=== PATIENT | female | born 1940 | race Caucasian/White ===

== ENCOUNTER 2017-07-03 16:05 | Emergency (ER) | payer OTHER ==
--- NOTE | 2017-07-03 16:11 | PDOC ---
History of Present Illness - General Chief Complaint: Pain Stated Complaint: BILATERAL LEG DVT Time Seen by Provider: 07/03/17 16:11 History Source: Patient - History of Present Illness Initial Comments: 07/03/17 16:12 Patient is a 77 year old female with history of DVT sent by PCP after duples showed Findings consistent with bilateral deep venous thromboses involving the right popliteal vein and left common femoral vein. PCP Dr. Rider Past History - Past Medical History Allergies/Adverse Reactions: Allergies Allergy/AdvReac Type Severity Reaction Status Date / Time No Known Drug Allergies Allergy Verified 04/21/16 08:17 Home Medications: Ambulatory Orders Aspirin [Ecotrin] 81 mg PO DAILY 04/15/16 Atenolol [Tenormin -] 50 mg PO DAILY 04/15/16 Atorvastatin Ca [Lipitor] 20 mg PO HS 04/15/16 Cholecalciferol (Vitamin D3) [Vitamin D3] 50,000 unit PO WEEKLY 04/15/16 Clopidogrel Bisulfate [Clopidogrel] 75 mg PO DAILY 04/15/16 Hydrochlorothiazide 25 mg PO DAILY 04/15/16 Rivaroxaban [Xarelto -] 15 mg PO BID #41 tab 07/03/17 Anemia: No Asthma: No Cancer: No Cardiac Disorders: Yes (PT HAD CHEST PAIN 2001,WORKUP---HAD 2 STENTS PLACED, LAST STESS TEST 2007,[place]) CVA: No COPD: No CHF: No Dementia: No Diabetes: No GI Disorders: Yes (H/O C/O STOMACH PAIN AFTER EATING;H/O COLON POLYPS) Disorders: No HTN: Yes Hypercholesterolemia: Yes Liver Disease: No Seizures: No Thyroid Disease: No - Surgical History Abdominal Surgery: No Appendectomy: Yes (1969) Cardiac Surgery: Yes (STENTS X2 2001) Cholecystectomy: No Lung Surgery: No Neurologic Surgery: No Orthopedic Surgery: Yes - Psycho/Social/Smoking Cessation Hx Smoking History: Never smoked Have you smoked in the past 12 months: No Hx Alcohol Use: Yes (RARE) Drug/Substance Use Hx: No Substance Use Type: Alcohol Hx Substance Use Treatment: No ED Treatment Course - LABORATORY CBC & Chemistry Diagram: 07/03/17 18:10 07/03/17 18:10 Medical Decision Making - Medical Decision Making 07/03/17 16:12 77 year old female with history of DVTs sent to ED by her PCP with duplex evidence of bilateral proximal DVTs. Patient states she was seen by her PCP for annual check-up who performed duplex d/t patinent c/o leg claudication on exzersion and was found to have b'l DVTs in the poplateal and femeral. Patient denies leg pain and shortness of breath. Denies any history of cerebral hemorrhage, current bleeding, recent surgery, recent long trips. 07/03/17 17:56 07/03/17 19:08 CMP Sodium 137 mmol/L (136-145) 07/03/17 18:10 Potassium 3.8 mmol/L (3.5-5.1) 07/03/17 18:10 Chloride 100 mmol/L (98-107) 07/03/17 18:10 Carbon Dioxide 29 mmol/L (22-28) H 07/03/17 18:10 Anion Gap 8 (8-16) 07/03/17 18:10 BUN 19 mg/dl (7-18) H 07/03/17 18:10 Creatinine 0.8 mg/dl (0.6-1.3) 07/03/17 18:10 Creat Clearance w eGFR > 60 (>60) 07/03/17 18:10 Random Glucose 98 mg/dl (74-106) 07/03/17 18:10 Calcium 9.4 mg/dl (8.4-10.2) 07/03/17 18:10 Total Bilirubin 0.4 mg/dl (0.2-1.0) 07/03/17 18:10 AST 27 U/L (10-42) 07/03/17 18:10 ALT 20 U/L (10-40) 07/03/17 18:10 Alkaline Phosphatase 60 U/L (32-92) 07/03/17 18:10 Total Protein 7.3 g/dl (6.4-8.3) 07/03/17 18:10 Albumin 4.3 g/dl (3.5-5.0) 07/03/17 18:10 Renal function wnl, CR 0.8, started on initial dose of enoxaparin, 70 mg (1 mg/ kg bid) 07/03/17 19:04 Microblog sent to hospitalist Patient care signed out to Dr. Kimberly Castillo *DC/Admit/Observation/Transfer Diagnosis at time of Disposition: DVT, bilateral lower limbs - Discharge Dispostion Condition at time of disposition: Stable - Prescriptions
[2017-07-03 16:28] VITALS: BMI 29.0
[2017-07-03 18:24] LABS: BASOPHIL 0.6 % (0-2.0); EOSINOPHIL 3.9 % (0-4.5); MCHC 32.7 g/dl (32.0-36.0); MEAN CELL VOLUME 91.9 fl (80-96); NEUTROPHILS 50.9 % (42.8-82.8); PLATELET COUNT 276 K/MM3 (134-434); RDW 13.7 % (11.6-15.6)
[2017-07-03 18:32] LABS: ACTIVATED PTT 26.7 SECONDS (24.0-38.9)
[2017-07-03 18:33] LABS: ALBUMIN 4.3 g/dl (3.5-5.0); ALK PHOS 60 U/L (32-92); ANION GAP 8 (8-16); BILIRUBIN,TOTAL 0.4 mg/dl (0.2-1.0); CALCIUM 9.4 mg/dl (8.4-10.2); CO2 29 mmol/L (22-28); CREATININE 0.8 mg/dl (0.6-1.3); GLUCOSE,RANDOM 98 mg/dl (74-106); SGOT/AST 27 U/L (10-42); SGPT/ALT 20 U/L (10-40); TOT PROT 7.3 g/dl (6.4-8.3)
[2017-07-03 18:36] LABS: INR 0.94 (0.82-1.09); PROTHROMBIN TIME (PATIENT) 10.5 SEC (10.2-13.0)
[2017-07-03] MEDS ORDERED: ENOXAPARIN NA (PORCINE) 120 MG/0.8 ML DISP.SYRIN SQ ONE (19:16)
--- NOTE | 2017-07-03 19:31 | PDOC ---
*Physical Exam - Vital Signs Last Vital Signs Temp Pulse Resp BP Pulse Ox 98.4 F 72 15 169/95 97 07/03/17 16:07 07/03/17 16:07 07/03/17 16:07 07/03/17 16:07 07/03/17 16:07 ED Treatment Course - LABORATORY CBC & Chemistry Diagram: 07/03/17 18:10 07/03/17 18:10 - ADDITIONAL ORDERS Additional order review: Laboratory Results 07/03/17 07/03/17 18:10 18:10 INR 0.94 L PTT (Actin FS) 26.7 Sodium 137 Potassium 3.8 Chloride 100 Carbon Dioxide 29 H Anion Gap 8 BUN 19 H Creatinine 0.8 Creat Clearance w eGFR > 60 Random Glucose 98 Calcium 9.4 Total Bilirubin 0.4 AST 27 ALT 20 Alkaline Phosphatase 60 Total Protein 7.3 Albumin 4.3 07/03/17 18:10 RBC 5.07 MCV 91.9 MCHC 32.7 RDW 13.7 MPV 8.0 Neutrophils % 50.9 Lymphocytes % 34.9 Monocytes % 9.7 Eosinophils % 3.9 Basophils % 0.6 Progress Note - Progress Note Progress Note: Case discussed with Dr. Vilchis ,[facility] hospitalist service who will admit patient for anticoagulation bilateral DVTs *DC/Admit/Observation/Transfer Diagnosis at time of Disposition: DVT, bilateral lower limbs Qualifiers: Affected thrombotic vein of extremity: unspecified vein of extremity Chronicity : acute Qualified Code(s): I82.403 - Acute embolism and thrombosis of unspecified deep veins of lower extremity, bilateral - Discharge Dispostion Disposition: HOME Condition at time of disposition: Stable Admit: Yes - Prescriptions
[2017-07-03] MEDS ORDERED: ENOXAPARIN NA (PORCINE) 100 MG/1 ML DISP.SYRIN SQ ONE (21:16)
[2017-07-03] MEDS ORDERED: RIVAROXABAN 15 MG TABLET PO ONE (21:32)
--- NOTE | 2017-07-03 21:37 | HP ---
CHIEF COMPLAINT: "I have blood clots in my legs." PCP: Adry HISTORY OF PRESENT ILLNESS: This is a 77yo woman with PMH of HTN, HLD and DVT who presents today from her PMD's office with (+) duplex doppler for DVT in left common femoral vein and right popliteal vein. She reports she has been experiencing intermittent b/l leg pain while walking up hills since approximately November of this year. She was taking warfarin for previous DVTs until "some time in 2016." She denies chest pain, shortness of breath, fevers or palpitations. ER course was notable for: (1) Review of previous duplex doppler Recent Travel: denies PAST MEDICAL HISTORY: see HPI PAST SURGICAL HISTORY: see HPI Social History: Smoking: denies Alcohol: denies Drugs: denies Allergies No Known Drug Allergies Allergy (Verified 04/21/16 08:17) HOME MEDICATIONS: Home Medications Medication Instructions Recorded Aspirin [Ecotrin] 81 mg PO DAILY 04/15/16 Atenolol [Tenormin -] 50 mg PO DAILY 04/15/16 Atorvastatin Ca [Lipitor] 20 mg PO HS 04/15/16 Cholecalciferol (Vitamin D3) 50,000 unit PO WEEKLY 04/15/16 [Vitamin D3] Clopidogrel Bisulfate [Clopidogrel] 75 mg PO DAILY 04/15/16 Hydrochlorothiazide 25 mg PO DAILY 04/15/16 REVIEW OF SYSTEMS CONSTITUTIONAL: Absent: fever, chills, diaphoresis, generalized weakness, malaise, loss of appetite, weight change HEENT: Absent: rhinorrhea, nasal congestion, throat pain, throat swelling, difficulty swallowing, mouth swelling, ear pain, eye pain, visual changes CARDIOVASCULAR: Absent: chest pain, syncope, palpitations, irregular heart rate, lightheadedness , peripheral edema RESPIRATORY: Absent: cough, shortness of breath, dyspnea with exertion, orthopnea, wheezing, stridor, hemoptysis GASTROINTESTINAL: Absent: abdominal pain, abdominal distension, nausea, vomiting, diarrhea, constipation, melena, hematochezia GENITOURINARY: Absent: dysuria, frequency, urgency, hesitancy, hematuria, flank pain, genital pain MUSCULOSKELETAL: Present: bilateral leg pain while walking up hills Absent: myalgia, arthralgia, joint swelling, back pain, neck pain SKIN: Absent: rash, itching, pallor HEMATOLOGIC/IMMUNOLOGIC: Absent: easy bleeding, easy bruising, lymphadenopathy, frequent infections ENDOCRINE: Absent: unexplained weight gain, unexplained weight loss, heat intolerance, cold intolerance NEUROLOGIC: Absent: headache, focal weakness or paresthesias, dizziness, unsteady gait, seizure, mental status changes, bladder or bowel incontinence PSYCHIATRIC: Absent: anxiety, depression, suicidal or homicidal ideation, hallucinations. PHYSICAL EXAMINATION GENERAL: Awake, alert, and fully oriented, in no acute distress. HEAD: Normal with no signs of trauma. EYES: Pupils equal, round and reactive to light, extraocular movements intact, sclera anicteric, conjunctiva clear. No lid lag. EARS, NOSE, THROAT: Ears normal, nares patent, oropharynx clear without exudates. Moist mucous membranes. NECK: Normal range of motion, supple without lymphadenopathy, JVD, or masses. LUNGS: Breath sounds equal, clear to auscultation bilaterally. No wheezes, and no crackles. No accessory muscle use. HEART: Regular rate and rhythm, normal S1 and S2 without murmur, rub or gallop. ABDOMEN: Soft, nontender, not distended, normoactive bowel sounds, no guarding, no rebound, no masses. No hepatomegaly or splenomegaly. MUSCULOSKELETAL: Normal range of motion at all joints. No bony deformities or tenderness. No CVA tenderness. UPPER EXTREMITIES: 2+ pulses, warm, well-perfused. No cyanosis. No clubbing. No peripheral edema. LOWER EXTREMITIES: 2+ pulses, warm, well-perfused. No calf tenderness. Trace peripheral edema. NEUROLOGICAL: Cranial nerves II-XII intact. Normal speech. Normal gait. PSYCHIATRIC: Cooperative. Good eye contact. Appropriate mood and affect. SKIN: Warm, dry, normal turgor, no rashes or lesions noted, normal capillary refill. ASSESSMENT/PLAN: A: 77 woman with PMH HTN and hyperlipidemia with DVTs in left common femoral and right popliteal veins. P: DVT - Lovenox given in ER - Will discharge with Rx for Xarelto and 1 dose to start in AM HTN - continue home meds HLD - continue home meds Visit type - Emergency Visit Emergency Visit: Yes ED Registration Date: 07/03/17 Care time: The patient presented to the Emergency Department on the above date and was hospitalized for further evaluation of their emergent condition. - New Patient This patient is new to me today: Yes Date on this admission: 07/04/17 - Critical Care Critical Care patient: No
--- NOTE | 2017-07-03 21:53 | DS ---
Physical Exam: SUBJECTIVE: Patient seen and examined OBJECTIVE: PHYSICAL EXAM GENERAL: The patient is awake, alert, and fully oriented, in no acute distress. HEAD: Normal with no signs of trauma. EYES: PERRL, extraocular movements intact, sclera anicteric, conjunctiva clear. ENT: Ears normal, nares patent, oropharynx clear without exudates, moist mucous membranes. NECK: Trachea midline, full range of motion, supple. LUNGS: Breath sounds equal, clear to auscultation bilaterally, no wheezes, no crackles, no accessory muscle use. HEART: Regular rate and rhythm, S1, S2 without murmur, rub or gallop. ABDOMEN: Soft, nontender, nondistended, normoactive bowel sounds, no guarding, no rebound, no hepatosplenomegaly, no masses. EXTREMITIES: 2+ pulses, warm, well-perfused, no edema. NEUROLOGICAL: Cranial nerves II through XII grossly intact. Normal speech, gait not observed. PSYCH: Normal mood, normal affect. SKIN: Warm, dry, normal turgor, no rashes or lesions noted. LABS HOSPITAL COURSE: Date of Admission:07/03/17 Date of Discharge: 07/03/17 Discharge Summary Reason For Visit: DVT Current Active Problems DVT, bilateral lower limbs (Acute) Condition: Stable - Instructions Diet, Activity, Other Instructions: Take Xarelto twice every day with food for 21 days. Then take Xarelto 20mg daily with food until stopped by your doctor. There are no diet restrictions with this medication. Continue you other medications as prescribed. Return to the ER for chest pain, shortness of breath, palpitations, or any other concerns. Referrals: Anna Rider MD [Primary Care Provider] - Disposition: HOME - Home Medications Comprehensive Discharge Medication List: Ambulatory Orders Aspirin [Ecotrin] 81 mg PO DAILY 04/15/16 Atenolol [Tenormin -] 50 mg PO DAILY 04/15/16 Atorvastatin Ca [Lipitor] 20 mg PO HS 04/15/16 Cholecalciferol (Vitamin D3) [Vitamin D3] 50,000 unit PO WEEKLY 04/15/16 Hydrochlorothiazide 25 mg PO DAILY 04/15/16 Rivaroxaban [Xarelto] 15mg PO BID for 21 days
[2017-07-03 22:11] VITALS: BP 162/84; PULSE 65; TEMP 98.1
--- NOTE | 2017-07-05 21:59 | EKG ---
Test Reason : Blood Pressure : / mmHG Vent. Rate : 059 BPM Atrial Rate : 059 BPM P-R Int : 154 ms QRS Dur : 084 ms QT Int : 478 ms P-R-T Axes : 049 -19 001 degrees QTc Int : 473 ms SINUS BRADYCARDIA WITH OCCASIONAL PREMATURE VENTRICULAR COMPLEXES NONSPECIFIC T WAVE ABNORMALITY NO PREVIOUS ECGS AVAILABLE Confirmed by CATRACHITA GONG MD ([id number]) on 07/05/2017 9:58:55 PM Referred By: MD MARTINEZ Confirmed By:CATRACHITA GONG MD
== END 2017-07-03 22:11 | disposition home or self-care (01) ==
LOC: FER 16:05 → FM/S 21:15 → UNDOADMOB 21:15 → FM/S 21:29 → UNDODISOB 07-04 15:23
PROC: 3E023GC Introduction of Other Therapeutic Substance into Muscle, Percutaneous Approach (ICD-10-PCS; principal; 2017-07-03)
DX: I82.403 Acute embolism and thrombosis of unspecified deep veins of lower extremity, bilateral (principal); Z86.718 Personal history of other venous thrombosis and embolism; E78.00 Pure hypercholesterolemia, unspecified; I10 Essential (primary) hypertension; Z95.5 Presence of coronary angioplasty implant and graft; Z79.01 Long term (current) use of anticoagulants
CPT/HCPCS: 36415; 71010-TC; 80053; 85025; 85610; 85730; 93005; 99282-25

== ENCOUNTER 2018-07-29 06:11 | Day surgery (SDC) | payer OTHER ==
[2018-06-07 12:48] VITALS: BMI 28.3
[~2018-07-29 06:11] MED LIST: BUPIVACAINE HCL/PF 0.5% (5MG/ML) 10 ML VIAL IJ ONE
[2018-07-29] MEDS ORDERED: LIDOCAINE HCL/PF 2% SDV 5ML VIAL ONE (07:24)
[2018-07-29] MEDS ORDERED: SODIUM CHLORIDE 0.9% P/F 10 ML VIAL IJ ONE (07:24)
[2018-07-29] MEDS ORDERED: DEXAMETHASONE SOD PHOSPHATE 4 MG/1 ML VIAL ONE (07:24)
[2018-07-29] MEDS ORDERED: ceFAZolin SODIUM 1 GM VIAL ONE ×3 (07:24→22:35)
[2018-07-29] MEDS ORDERED: MIDAZOLAM HCL 2 MG/2 ML SINGLE DOSE VIAL ONE ×3 (07:25→07:27)
[2018-07-29] MEDS ORDERED: SUCCINYLCHOLINE CHLORIDE 200 MG/10 ML VIAL ONE (07:25)
[2018-07-29] MEDS ORDERED: ROCURONIUM BROMIDE 50 MG/5 ML VIAL ONE (07:25)
[2018-07-29] MEDS ORDERED: PROPOFOL 20 ML ONE (07:25)
[2018-07-29] MEDS ORDERED: BUPIVACAINE HCL/PF 0.25% (2.5MG/ML) 10 ML VIAL ONE ×2 (07:29→07:30)
[2018-07-29] MEDS ORDERED: DEXAMETHASONE SOD PHOSPHATE/PF 10 MG/ML SDV ONE (07:29)
[2018-07-29] MEDS ORDERED: PHENAZOPYRIDINE HCL 100 MG TABLET (FP) ONE ×2 (07:40→13:35)
[2018-07-29] MEDS ORDERED: CEFAZOLIN 2 GM in DEXTROSE 5%-WATER - 100 ML IVPB ONE ×2 (08:06→10:59)
--- NOTE | 2018-07-29 08:06 | HP ---
History & Physical Update - History History: No Change - Physical Physical: No Change - Assessment Assessment: No Change - Plan Plan: No Change (Full H&P in chart from 06/29/2018)
[2018-07-29] MEDS ORDERED: ePHEDrine SULFATE 50 MG/1 ML AMPULE ONE (08:20)
[2018-07-29] MEDS ORDERED: ceFAZolin SODIUM 1 GM VIAL IVPB ONE (08:20)
[2018-07-29] MEDS ORDERED: ONDANSETRON 4 MG/2 ML VIAL IVPUSH PRN ×2 (08:39→11:57)
[2018-07-29] MEDS ORDERED: LACTATED RINGERS SOLUTION 1,000 ML IV SCH (08:45)
[2018-07-29] MEDS ORDERED: GLYCOPYRROLATE 0.2 MG/1 ML VIAL ONE (08:47)
[2018-07-29] MEDS ORDERED: NEOSTIGMINE METHYLSULFATE 0.5 MG/ML - 10 ML MDV ONE (08:48)
[2018-07-29] MEDS ORDERED: BUPIVACAINE HCL/PF 0.5% (5MG/ML) 10 ML VIAL IJ ONE (09:59)
--- NOTE | 2018-07-29 10:23 | CONSULT ---
Consult Consult Specialty:: Surgery Reason for Consultation:: Colon diverticular disease seen in the OR during hysterectomy - History of Present Illness History of Present Illness: As above - Past Medical History ...: No - Alcohol/Substance Use Hx Alcohol Use: Yes (RARE) - Smoking History Smoking history: Never smoked Have you smoked in the past 12 months: No Home Medications - Allergies Allergies/Adverse Reactions: Allergies Allergy/AdvReac Type Severity Reaction Status Date / Time No Known Drug Allergies Allergy Verified 06/07/18 12:23 - Home Medications Home Medications: Ambulatory Orders Aspirin [Ecotrin] 81 mg PO DAILY 04/15/16 Atenolol [Tenormin -] 50 mg PO DAILY 04/15/16 Atorvastatin Ca [Lipitor] 20 mg PO HS 04/15/16 Cholecalciferol (Vitamin D3) [Vitamin D3] 50,000 unit PO WEEKLY 04/15/16 Clopidogrel Bisulfate [Clopidogrel] 75 mg PO DAILY 04/15/16 Hydrochlorothiazide 25 mg PO DAILY 04/15/16 B12/Levomefolate Calcium/B-6 [Folbic Rf Tablet] 2,000 each PO DAILY 06/07/18 Levothyroxine [Synthroid -] 50 mcg PO DAILY 06/07/18 Oxybutynin Chloride [Ditropan Xl] 10 mg PO DAILY 06/07/18 Review of Systems Unable to obtain ROS, reason: Intubated Physical Exam Vital Signs: Vital Signs Temperature 98.3 F 07/29/18 06:35 Pulse Rate 58 L 07/29/18 06:35 Respiratory Rate 20 07/29/18 06:35 Blood Pressure 146/83 07/29/18 06:35 O2 Sat by Pulse Oximetry (%) 95 07/29/18 06:35 Problem List - Problems (1) Diverticula of colon Code(s): K57.30 - DVRTCLOS OF LG INT W/O PERFORATION OR ABSCESS W/O BLEEDING Assessment/Plan Diverticula seen in left colon/sigmoid during hysterectomy Recommend colonoscopy as outpatient Colorectal surgery evaluation Thank you
--- NOTE | 2018-07-29 10:41 | OP ---
DATE OF OPERATION: 07/28/2018 PREOPERATIVE DIAGNOSIS: Pelvic prolapse, leiomyomatous uterus. OPERATION: Laparoscopic robotic total hysterectomy and bilateral salpingo-oophorectomy enterolysis o POSTOPERATIVE DIAGNOSIS: Diverticulosis. SURGEON: Samaria Zamora MD IMPACT HAMMER OPERATOR: AMBROSE Bolton ANESTHESIA: General. DESCRIPTION OF PROCEDURE: The patient was taken to the operating room and placed in dorsal lithotomy position, prepped and draped in the usual sterile fashion. A time-out was performed in accordance with hospital regulation. The cervix was grasped with a single-tooth tenaculum, and cervix was found to be prolapse out of vagina. The cervix was grasped with a tenaculum. The cervix was then dilated to accommodate the uterine manipulator. Whiteside catheter was then inserted. Attention was then drawn to the umbilicus where an 8-mm umbilical incision was made. Veress needle was inserted into the cavity. Approximately 3-4 L of CO2 was insufflated in the cavity. Veress needle was then removed. An 8-mm trocar was then inserted. Two trocars were placed on the left 8 mm apart from the umbilical incision. An 8-mm trocar was then inserted, and AirSeal cannula was inserted in the upper abdomen under direct visualization. Two incisions were made on the right side 8 mm apart parallel to the umbilical incision. Trocars were then inserted under direct visualization. The Da Lexi robot was then side docked to the patient's arm. Trocars were then inserted onto the Da Lexi robot. The tenaculum and Endo Lyssa were inserted on the right, and vessel sealer was inserted on the left. After placement had been confirmed, attention was then drawn to the console where control of the console was done. Omental adhesions were found and lysis with vessal sealer. Tenaculum was used to elevate the uterus. Leiomyomatous uterus was noted, and diverticulum of the colon was seen. Uterine ovarian ligament was identified, clamped, and cut on the right. Ovaries were noted to be normal. Tubes normal. The adnexa was then coagulated and cut. Vesicouterine reflection was then entered, and the bladder was bluntly dissected out of the operative field. Ureters were identified prior to start of the case and found to have peristalsis. Uterines were grasped with vessel sealer and clamped and cut down to the level of the cervix after bladder had been bluntly dissected off the cervix. The same procedure was repeated on the other side down to the level of the cervix. The vagina was then entered posteriorly, and circumferentially the cervix was then removed. The cervix, uterus, tubes, and ovaries were removed from the vagina. A 2-0 V-Lock suture was then used into the abdomen, and the vagina was then closed using Da Lexi robot in a continuous fashion. Hemostasis was achieved. Ureters were identified and found to have the peristalsis. Intraoperative consult was called with Surgery Dr Lucio and found the patient just to have diverticula. Need to follow up with GI doctor. Hemostasis was achieved. Needle was then removed. All trocars were then removed from the abdomen. CO2 was removed. Incisions were closed using 3-0 Vicryl suture in a subcuticular fashion. The wound was washed and dressed. EBL was about 50 mL. SAMARIA ZAMORA M.D. [id number]
[2018-07-29] MEDS ORDERED: PHENAZOPYRIDINE HCL 100 MG TABLET (FP) PO ONE (10:59)
[2018-07-29] MEDS ORDERED: oxyCODONE HCL 5 MG TABLET PO PRN ×2 (11:23)
[2018-07-29] MEDS ORDERED: ACETAMINOPHEN 325 MG TABLET (FP) PO SCH (11:30)
[2018-07-29] MEDS ORDERED: LACTATED RINGERS SOLUTION 1,000 ML/1,000 ML INFUS.BAG IV SCH (11:30)
--- NOTE | 2018-07-29 11:31 | OP ---
Operative Note - Note: Operative Date: 07/29/18 Pre-Operative Diagnosis: prolapsed uterus Operation: s/p robotic assisted total hysterctomy with bilateral salpingectomy and oophorectomy, lysis of adhesions Surgeon: Ursula Uribe Insurance Claim Auditor: Patty Alvarez Anesthesia: General Specimens Removed: uterus, bilateral salpingx and ovaries Estimated Blood Loss (mls): 50 Drains, Volume Out (mls): 300 (carbajal) Fluid Volume Replaced (mls): 900 Operative Report Dictated: Yes
--- NOTE | 2018-07-29 11:33 | SURG ---
Surgery Spray Drier Note Spray Drier: Patty Alvarez PA-C Date of Service: 07/29/18 Diagnosis: prolasped uterus Procedure: robotic assisted total hysterectomy with bilateral salpingectomy and oophorectomy, lysis of adhesions I was present for the entirety of the operative procedure. For further detail, please refer to operative report. Visit type - Case Type Case Type: Scheduled - Emergency Emergency Visit: No - New patient This patient is new to me today: Yes Date on this admission: 07/29/18
[2018-07-29] MEDS ORDERED: SOLIFENACIN SUCCINATE 5 MG TAB (FP) PO SCH (12:00)
[2018-07-29] MEDS: ACETAMINOPHEN 325 MG TABLET (FP) PO SCH ×2 (15:08→22:52)
[2018-07-29] MEDS ORDERED: DEXTROSE 5%-WATER - 50 ML IVPB ONE ×2 (15:24→22:35)
[2018-07-29] MEDS: CEFAZOLIN 1 GM in DEXTROSE 5%-WATER - 50 ML IVPB SCH ×2 (15:28→22:50)
[2018-07-29] MEDS ORDERED: CEFAZOLIN 1 GM in DEXTROSE 5%-WATER - 50 ML IVPB SCH (16:00)
[2018-07-29 20:47] LABS: BASO % 0.1 % (0-2.0); HEMATOCRIT 41.2 % (32.4-45.2); LYMPH % 8.7 % (8-40); MCH 31.2 pg (25.7-33.7); MEAN CELL VOLUME 91.8 fl (80-96); MEAN PLT VOLUME 8.4 fl (7.5-11.1); MONO % 2.5 % (3.8-10.2); NEUT % 88.7 % (42.8-82.8); PLATELET COUNT 211 K/MM3 (134-434); RBC 4.49 M/mm3 (3.60-5.2); RDW 14.1 % (11.6-15.6); WHITE BLOOD COUNT 7.8 K/mm3 (4.0-10.0)
[2018-07-29 21:36] LABS: ANION GAP 10 MMOL/L (8-16); BLOOD UREA NITROGEN 14 mg/dL (7-18); CALCIUM 8.8 mg/dL (8.5-10.1); CHLORIDE 104 mmol/L (98-107); CO2 25 mmol/L (21-32); CREATININE 0.9 mg/dL (0.55-1.3); GLUCOSE,RANDOM 191 mg/dL (74-106); SODIUM 139 mmol/L (136-145)
[2018-07-29] MEDS ORDERED: ATORVASTATIN CA 20 MG TABLET (FP) PO SCH (22:00)
[2018-07-30] MEDS: ACETAMINOPHEN 325 MG TABLET (FP) PO SCH (06:30)
[2018-07-30] MEDS ORDERED: LEVOTHYROXINE NA 50 MCG TABLET (FP) PO SCH (07:00)
[2018-07-30 08:04] LABS: HEMATOCRIT 41.5 % (32.4-45.2); HEMOGLOBIN 13.7 GM/dL (10.7-15.3); MCH 30.5 pg (25.7-33.7); MEAN CELL VOLUME 92.3 fl (80-96); MEAN PLT VOLUME 7.9 fl (7.5-11.1); PLATELET COUNT 221 K/MM3 (134-434); RDW 14.1 % (11.6-15.6)
[2018-07-30 08:07] VITALS: BP 105/60; PULSE 69; TEMP 98.2
[2018-07-30 08:26] LABS: ANION GAP 4 MMOL/L (8-16); BLOOD UREA NITROGEN 12 mg/dL (7-18); CALCIUM 8.7 mg/dL (8.5-10.1); CHLORIDE 105 mmol/L (98-107); CO2 30 mmol/L (21-32); CREATININE 0.7 mg/dL (0.55-1.3); GLUCOSE,RANDOM 105 mg/dL (74-106); POTASSIUM 4.6 mmol/L (3.5-5.1); SODIUM 139 mmol/L (136-145)
[2018-07-30] MEDS ORDERED: ATENOLOL 50 MG TABLET (FP) PO SCH (10:00)
[2018-07-30] MEDS ORDERED: HYDROCHLOROTHIAZIDE 25 MG TABLET (FP) PO SCH (10:00)
[2018-07-30] MEDS ORDERED: ENOXAPARIN NA (PORCINE) 30 MG/0.3 ML DISP.SYRIN SQ SCH (10:00)
--- NOTE | 2018-07-30 11:34 | PN ---
Progress Note (short form) - Note Progress Note: Pt seen and examined on AM rounds. Patient sitting in chair. Reports she is feeling well, denies any pain at this time. Tolerating PO, has been oob without issue. Awaiting TOV, carbajal removed this AM. Denies cp/sob, n/v/d, calf pain. Vital Signs Temp 98.2 F 07/30/18 08:06 Pulse 69 07/30/18 08:06 Resp 20 07/30/18 08:06 BP 105/60 07/30/18 08:06 Pulse Ox 97 07/29/18 14:20 Intake & Output 07/29/18 07/29/18 07/30/18 11:59 23:59 11:59 Intake Total 1000 800 700 Output Total 350 1050 1200 Balance 650 -250 -500 Intake: IV 1000 500 700 LACTATED RINGERS SOLUTION 400 700 1,000 ml In 1,000 ml @ 75 mls/hr IV ASDIR WILBERTO Rx #:[id number] IVPB 300 Output: Urine 300 1050 1200 Carbajal 750 1200 Estimated Blood Loss 50 Other: Voiding Method Indwelling Catheter Abnormal Lab Results 07/29/18 07/29/18 07/30/18 20:20 20:20 07:30 WBC 13.0 H Neutrophils % 88.7 H D Monocytes % 2.5 L Anion Gap Random Glucose 191 H 07/30/18 07:30 WBC Neutrophils % Monocytes % Anion Gap 4 L Random Glucose CBC, BMP 07/30/18 07:30 07/30/18 07:30 Gen: awake, alert, nad Abdomen, soft, nt/nd, incisions c/d/i with steri-strips/bandages in place Ext: calves soft/nt A/P: 78 y/o F w/ PMHx DVT (R pop, L cfv; 06/25), venous insufficiency, bladder prolapse, now POD1, s/p robotic assisted total hysterctomy with bilateral salpingectomy and oophorectomy, lysis of adhesions. Doing well post op. VSS, labs stable, OOb without issue, tolerating PO. P: TOV for 6am Continue pain control Plan for d/c later today
--- NOTE | 2018-08-02 17:14 | PATH ---
Surgical Pathology Report Patient Name: SHLOMO YOST [facility]. Rec. #: [id number] /Age/Gender: 1940 (Age: 78) / F Account: [id number] Location: AMBULATORY SURG Taken: 07/29/2018 Received: 07/29/2018 Reported: 08/02/2018 Physicians: Ursula Uribe M.D. Specimen(s) Received UTERUS, CERVIX, WITH TUBES AND OVARIES Clinical History Uterine prolapse Final Diagnosis UTERUS, CERVIX, BILATERAL OVARIES AND FALLOPIAN TUBES, HYSTERECTOMY AND BILATERAL SALPINGO-OOPHORECTOMY: LEIOMYOMATA, SOME OF THE LEIOMYOMAS SHOWING DEGENERATIVE CHANGE (HYALINIZATION, CALCIFICATION). ATROPHIC ENDOMETRIUM. CERVIX WITH MILD CHRONIC INFLAMMATION. LEFT FALLOPIAN TUBE WITH PARATUBAL CYSTS. UNREMARKABLE BILATERAL OVARIES AND RIGHT FALLOPIAN TUBE. Electronically Signed Sunil Coppola M.D. Gross Description Received in formalin labeled "uterus, cervix, bilateral ovaries and fallopian tubes," is a 61 g uterus with an attached cervix and attached bilateral fallopian tubes and ovaries. The specimen measures 8 cm from superior to inferior, 4.7 cm from anterior to posterior and 4 cm from left to right. The serosa is lo-lundy with a bulging anterior, calcified subserosal nodule. The attached cervix measures 4 cm in length and 2 cm in diameter. There is no ectocervix identified. The endocervix is unremarkable. The endometrial cavity measures 3 cm from superior to inferior and 2 cm from cornu to cornu. The endometrium averages 0.1 cm in thickness. There is a 1.3 cm in greatest dimension bulging anterior, calcified submucosal nodule. The myometrium displays multiple intramural nodules, measuring up to 2 cm in greatest dimension. The cut surface of the intramural nodules is lo and rubbery with whorled architecture. The left fimbriated fallopian tube measures 4 cm in length. The outer surface is lo lundy and smooth. Sectioning reveals an unremarkable lumen. The left ovary measures 2.6 x 1.5 x 1.0 cm. The outer surface is lo-yellow and smooth. Sectioning reveals unremarkable ovarian parenchyma. The right fimbriated fallopian tube measures 4.3 cm in length. The outer surface is lo lundy and smooth. Sectioning reveals an unremarkable lumen. The right ovary measures 2.5 x 1.4 x 0.9 cm. The outer surface is lo-yellow and smooth. Sectioning reveals an unremarkable lumen. Buckle Assembler sections are submitted in 15 cassettes as follows: 1-anterior cervix; 2-posterior cervix; 7-1-cbycxoon endomyometrium; 9-5-fvmxcnyak endomyometrium; 7-calcified submucosal nodule, following decalcification; 8-calcified subserosal nodule, following decalcification; 9-intramural nodules; 10-left fallopian tube fimbria; 11-cross sections of left fallopian tube; 12-left ovary; 13-right fallopian tube fimbria; 14-cross sections of right fallopian tube; 15-right ovary. 07/30/2018 [facility]07/30/2018
== END 2018-07-30 13:05 | disposition home or self-care (01) ==
LOC: JASU-SURG 06:11 → JASUSAT 06:11 → J3W 14:25 → JASUSAT 07-30 13:05
PROVIDERS: ATTEND Obstetrics & Gynecology
PROC: 0UT7FZZ Resection of Bilateral Fallopian Tubes, Via Natural or Artificial Opening With Percutaneous Endoscopic Assistance (ICD-10-PCS; 2018-07-29)
PROC: 8E0W8CZ Robotic Assisted Procedure of Trunk Region, Via Natural or Artificial Opening Endoscopic (ICD-10-PCS; 2018-07-29)
PROC: 0UT9FZZ Resection of Uterus, Via Natural or Artificial Opening With Percutaneous Endoscopic Assistance (ICD-10-PCS; principal; 2018-07-29 08:00)
PROC: 0UT2FZZ Resection of Bilateral Ovaries, Via Natural or Artificial Opening With Percutaneous Endoscopic Assistance (ICD-10-PCS; 2018-07-29 08:00)
DX: N81.89 Other female genital prolapse (principal); D25.9 Leiomyoma of uterus, unspecified
CPT/HCPCS: 58552; S2900; 36415; 80048; 85025; 85027; 88307-TC; 94760

== ENCOUNTER 2019-03-08 01:12 | Inpatient (IN) | payer OTHER ==
--- NOTE | 2019-03-08 02:17 | PDOC ---
History of Present Illness - General Stated Complaint: ABD PAIN Time Seen by Provider: 03/08/19 02:08 - History of Present Illness Initial Comments: 03/08/19 02:54 The patient is a 79 year old female with a history of HTN, HLD, CAD, who presents for evaluation of abdominal pain. The patient reports onset of sharp upper abdominal pain beginning yesterday evening that has progressively worsened prompting her presentation to the ED for further evaluation. She denies similar symptoms in the past and otherwise denies fevers, chills, SOB, chest pain, nausea, vomiting, or changes with urination or bowel movements. Past History - Past Medical History Allergies/Adverse Reactions: Allergies Allergy/AdvReac Type Severity Reaction Status Date / Time No Known Drug Allergies Allergy Verified 03/08/19 02:30 Home Medications: Ambulatory Orders Aspirin [Ecotrin] 81 mg PO DAILY 04/15/16 Atenolol [Tenormin -] 50 mg PO DAILY 04/15/16 Atorvastatin Ca [Lipitor] 20 mg PO HS 04/15/16 Hydrochlorothiazide 25 mg PO DAILY 04/15/16 Levothyroxine [Synthroid -] 50 mcg PO DAILY 06/07/18 Oxybutynin Chloride [Ditropan Xl] 10 mg PO DAILY 06/07/18 Anemia: No Asthma: No Cancer: No Cardiac Disorders: Yes (PT HAD CHEST PAIN 2001,WORKUP---HAD 2 STENTS PLACED, LAST STESS TEST 2007,[place]) CVA: No COPD: No CHF: No Dementia: No Diabetes: No GI Disorders: No Disorders: Yes (incontinence) HTN: Yes Hypercholesterolemia: Yes Liver Disease: No Seizures: No Thyroid Disease: Yes - Surgical History Abdominal Surgery: No Appendectomy: Yes (1969) Cardiac Surgery: Yes (STENTS X2 2001) Cholecystectomy: No Lung Surgery: No Neurologic Surgery: No Orthopedic Surgery: Yes - Suicide/Smoking/Psychosocial Hx Smoking History: Never smoked Have you smoked in the past 12 months: No Hx Alcohol Use: Yes (RARE) Drug/Substance Use Hx: No Substance Use Type: Alcohol Hx Substance Use Treatment: No Review of Systems - Review of Systems Comments:: 03/08/19 02:56 Constitutional: No fevers, chills, fatigue, malaise HEENT: No Rhinorrhea, nasal congestion, visual changes Cardiovascular: No chest pain, syncope, palpitations, lightheadedness Respiratory: No Cough, SOB, Hemoptysis, Gastrointestinal: Abdominal pain, No Nausea, Vomiting, Constipation, Diarrhea, Melena Genitourinary: No Dysuria, Frequency, Urgency, Hesitancy, Hematuria, Flank pain Musculoskeletal: No Myalgia, arthralgia Skin: No rashes, itching, bruising, pallor Neurologic: No Headache, Dizziness, Numbness, Weakness, or Tingling Psychiatric: No Hallucinations. No SI or HI *Physical Exam - Physical Exam Comments: 03/08/19 02:56 General Appearance: Nourished. No Apparent Distress HEENT: No Pharyngeal Erythema, Tonsillar Exudate, Tonsillar Erythema Neck: No Cervical Lymphadenopathy Respiratory/Chest: Lungs Clear, Normal Breath Sounds. No Crackles, Rales, Rhonchi, Wheezing Cardiovascular: Regular Rhythm, Regular Rate. No Murmur, Gallops, Rubs Gastrointestinal/Abdominal: Normal Bowel Sounds, Soft. Diffuse upper abdominal tenderness to palpation on exam in the LUQ, epigastrium and RUQ. No Guarding, Rebound, Musculoskeletal: No CVA Tenderness Extremity: Normal Capillary Refill Integumentary: Normal Color, Dry, Warm Neurologic: Fully Oriented, Alert, Normal Mood/Affect, Normal Response, ED Treatment Course - LABORATORY CBC & Chemistry Diagram: 03/08/19 02:53 03/08/19 02:53 Medical Decision Making - Medical Decision Making 03/08/19 02:57 The patient is a 79 year old female with a history of HTN, HLD, CAD, who presents for evaluation of abdominal pain. Differential includes but is not limited to: ACS, Gastritis, Gastroenteritis, Pancreatitis, Infectious, Metabolic Derangement. Given the patient's history and physical exam, we will obtain a cbc, cmp, lipase, troponin, lactate, ekg, chest plain film, abdomen/ pelvis ct to evaluate further. We will treat with iv fluids, pepcid, zofran, tylenol and continue to monitor and reassess while here in the ED. 03/08/19 04:45 CBC is unremarkable. CMP demonstrates mild elevations in liver enzymes. Lipase is elevated to 19618g. Lactate is elevated to 2.4. Chest plain film is unremarkable. CT abdomen/pelvis is still pending. The patient's symptoms are likely due to an acute pancreatitis. We will treat with iv fluids and the patient will require admission for further management. We discussed the case with the admitting team who accepted the patient for admission. 03/08/19 06:01 CT abdomen/pelvis demonstrates possible gallbladder wall thickening with pericholcystic fluid concerning for a possible cholecytitis as preliminarily read by our information technology audit manager radiologist. We will treat with levaquin and flagyl and we have relayed the results of the ct to the inpatient team. We will obtain a gallbladder US to evaluate further which the inpatient team will follow up on the results for. *DC/Admit/Observation/Transfer Diagnosis at time of Disposition: Pancreatitis Qualifiers: Chronicity: acute Pancreatitis type: unspecified pancreatitis type Acute pancreatitis complication: unspecified Qualified Code(s): K85.90 - Acute pancreatitis without necrosis or infection, unspecified - Discharge Dispostion Condition at time of disposition: Stable Decision to Admit order: Yes - Referrals - Patient Instructions - Post Discharge Activity
[2019-03-08] MEDS ORDERED: ONDANSETRON 4 MG/2 ML VIAL IVPUSH ONE (02:25)
[2019-03-08] MEDS ORDERED: ACETAMINOPHEN 1000 MG/100 ML VIAL (NON FORMULARY) IVPB ONE (02:27)
[2019-03-08] MEDS ORDERED: SODIUM CHLORIDE 1,000 ML IV STA ×2 (02:27→03:56)
--- NOTE | 2019-03-08 02:31 | PDOC ---
Attending Attestation - Resident Resident Name: Db Barker - ED Attending Attestation I have performed the following: I have examined & evaluated the patient, The case was reviewed & discussed with the resident, I agree w/resident's findings & plan - HPI HPI: 03/08/19 03:58 79-year-old female with mid abdominal pain that began approximately 8 PM last night. Patient describes it as aching. It did not radiate to the back. Vomiting or fever. - Physicial Exam PE: 03/08/19 03:58 GENERAL: Awake, in no acute distress HEAD: No signs of trauma EYES: ENT:clear without exudates. Moist mucosa NECK: Normal ROM, LUNGS:. Normal work of breathing. HEART: Regular rate and rhythm, ABDOMEN: Soft, mild. Umbilical/midepigastric tenderness, no guarding CHEST WALL: BACK: No midline tenderness. EXTREMITIES:. No erythema, or tenderness NEUROLOGICAL: Alert, SKIN: Warm, Dry - Medical Decision Making 03/08/19 03:59 79-year-old female with abdominal pain now improved after IV fluids anti- emetics antacids and analgesics Labs reveal a significantly elevated lipase consistent with acute pancreatitis Plan for CT scan of the abdomen and pelvis and admission to medical service for further management
[2019-03-08] MEDS ORDERED: ONDANSETRON 4 MG/2 ML VIAL ONE (02:59)
[2019-03-08 03:14] LABS: BASO % 0.2 % (0-2.0); EOS % 0.7 % (0-4.5); HEMOGLOBIN 14.9 GM/dL (10.7-15.3); LYMPH % 11.4 % (8-40); MCH 31.7 pg (25.7-33.7); MCHC 33.9 g/dl (32.0-36.0); MEAN CELL VOLUME 93.7 fl (80-96); MEAN PLT VOLUME 8.1 fl (7.5-11.1); MONO % 4.8 % (3.8-10.2); NEUT % 82.9 % (42.8-82.8); PLATELET COUNT 212 K/MM3 (134-434); RDW 13.8 % (11.6-15.6); WHITE BLOOD COUNT 8.9 K/mm3 (4.0-10.0)
[2019-03-08] MEDS ORDERED: ACETAMINOPHEN INJECTION 100 ML IVPB ONE (03:15)
[2019-03-08] MEDS ORDERED: FAMOTIDINE 20 MG/50 ML IVPB 20 MG/50 ML MG IVPB ONE ×2 (03:47→04:00)
[2019-03-08 03:52] LABS: ALBUMIN 3.6 g/dl (3.4-5.0); ALK PHOS 106 U/L (45-117); ANION GAP 7 MMOL/L (8-16); BILIRUBIN,TOTAL 0.8 mg/dL (0.2-1); BLOOD UREA NITROGEN 10 mg/dL (7-18); CALCIUM 9.2 mg/dL (8.5-10.1); CHLORIDE 100 mmol/L (98-107); CO2 27 mmol/L (21-32); CREATININE 0.7 mg/dL (0.55-1.3); GLUCOSE,RANDOM 163 mg/dL (74-106); LIPASE 29288 U/L (73-393); POTASSIUM 4.5 mmol/L (3.5-5.1); SGOT/AST 215 U/L (15-37); SGPT/ALT 157 U/L (13-61); SODIUM 134 mmol/L (136-145); TOT PROT 7.2 g/dl (6.4-8.2)
[2019-03-08] MEDS ORDERED: ACETAMINOPHEN 325 MG TABLET (FP) PO PRN (04:13)
[2019-03-08] MEDS ORDERED: morphine SULFATE 4 MG/ML VIAL IVPUSH PRN (04:13)
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
[2019-03-08] MEDS: LACTATED RINGERS SOLUTION 1,000 ML IV SCH (05:32)
[2019-03-08] MEDS ORDERED: LEVOTHYROXINE NA 25 MCG TABLET (FP) ONE (07:12)
[2019-03-08] MEDS: LEVOTHYROXINE NA 50 MCG TABLET (FP) PO SCH (07:21)
[2019-03-08 08:00] LABS: ANION GAP 4 MMOL/L (8-16); BLOOD UREA NITROGEN 8 mg/dL (7-18); CHLORIDE 106 mmol/L (98-107); CO2 30 mmol/L (21-32); CREATININE 0.8 mg/dL (0.55-1.3); GLUCOSE,RANDOM 123 mg/dL (74-106); MAGNESIUM 2.1 mg/dL (1.8-2.4); PHOSPHOROUS 3.6 mg/dL (2.5-4.9); POTASSIUM 4.1 mmol/L (3.5-5.1); SODIUM 141 mmol/L (136-145)
[2019-03-08 08:09] LABS: BASO % 0.5 % (0-2.0); EOS % 0.6 % (0-4.5); HEMOGLOBIN 15.3 GM/dL (10.7-15.3); LYMPH % 15.7 % (8-40); MCHC 33.3 g/dl (32.0-36.0); MEAN CELL VOLUME 93.1 fl (80-96); NEUT % 79.2 % (42.8-82.8); PLATELET COUNT 251 K/MM3 (134-434); RBC 4.94 M/mm3 (3.60-5.2); RDW 14.1 % (11.6-15.6)
[2019-03-08 08:21] LABS: INR 0.96 (0.83-1.09); PROTHROMBIN TIME (PATIENT) 11.3 SEC (9.7-13.0)
--- NOTE | 2019-03-08 08:34 | EKG ---
Test Reason : Blood Pressure : / mmHG Vent. Rate : 063 BPM Atrial Rate : 063 BPM P-R Int : 140 ms QRS Dur : 076 ms QT Int : 470 ms P-R-T Axes : 036 -19 -11 degrees QTc Int : 480 ms POOR DATA QUALITY, INTERPRETATION MAY BE ADVERSELY AFFECTED NORMAL SINUS RHYTHM NONSPECIFIC ST AND T WAVE ABNORMALITY ABNORMAL ECG WHEN COMPARED WITH ECG OF 23-JUL-2018 09:58, QT HAS LENGTHENED Confirmed by MD JERRI, JC ([id number]) on 03/08/2019 8:34:20 AM Referred By: Confirmed By:JC GUTHRIE MD
[2019-03-08] MEDS: ATENOLOL 50 MG TABLET (FP) PO SCH (09:35)
[2019-03-08] MEDS: SOLIFENACIN SUCCINATE 5 MG TAB (FP) PO SCH (09:35)
[2019-03-08] MEDS: ENOXAPARIN NA (PORCINE) 40 MG/0.4 ML DISP.SYRIN SQ SCH (09:35)
--- NOTE | 2019-03-08 09:56 | CON.GI ---
Consult - History of Present Illness History of Present Illness: GI consult dictated abx ivf @ 150 cc/ hr npo mrcp surgery evaluation see full consult - Alcohol/Substance Use Hx Alcohol Use: Yes (RARE) - Smoking History Smoking history: Never smoked Have you smoked in the past 12 months: No Home Medications - Allergies Allergies/Adverse Reactions: Allergies Allergy/AdvReac Type Severity Reaction Status Date / Time No Known Drug Allergies Allergy Verified 03/08/19 02:30 - Home Medications Home Medications: Ambulatory Orders Aspirin [Ecotrin] 81 mg PO DAILY 04/15/16 Atenolol [Tenormin -] 50 mg PO DAILY 04/15/16 Atorvastatin Ca [Lipitor] 20 mg PO HS 04/15/16 Hydrochlorothiazide 25 mg PO DAILY 04/15/16 Levothyroxine [Synthroid -] 50 mcg PO DAILY 06/07/18 Oxybutynin Chloride [Ditropan Xl] 10 mg PO DAILY 06/07/18 Physical Exam-GI Vital Signs: Vital Signs Temperature 98.2 F 03/08/19 06:57 Pulse Rate 62 03/08/19 06:57 Respiratory Rate 18 03/08/19 01:12 Blood Pressure 132/61 03/08/19 06:57 O2 Sat by Pulse Oximetry (%) 96 03/08/19 06:57 Labs: CBC, BMP 03/08/19 07:25 03/08/19 07:25 INR, PTT INR 0.96 (0.83-1.09) 03/08/19 07:25
[2019-03-08] MEDS ORDERED: HYDROCHLOROTHIAZIDE 25 MG TABLET (FP) PO SCH (10:00)
[2019-03-08] MEDS ORDERED: ASPIRIN COATED 81 MG TABLET.EC PO SCH (10:00)
[2019-03-08] MEDS ORDERED: morphine SULFATE 4 MG/ML VIAL ONE (10:57)
[2019-03-08] MEDS ORDERED: LACTATED RINGERS SOLUTION 1,000 ML/1,000 ML INFUS.BAG IV SCH (11:00)
--- NOTE | 2019-03-08 12:03 | PN ---
Teaching Attending Note Name of Resident: Jus Nguyen ATTENDING PHYSICIAN STATEMENT I saw and evaluated the patient. I reviewed the resident's note and discussed the case with the resident. I agree with the resident's findings and plan as documented. SUBJECTIVE:continues to have RUQ/LUQ abdominal pain but improved since arrival. no similiar episodes in the past. did not start in one area and then radiates. never had biliary colic-like symptoms or been treated for pancreatitis in the past. states she only drinks 1-2/year for special occasions and last drink was some time ago. denies Cp, SOB, fever, chills, N/V OBJECTIVE: Last Vital Signs Temp Pulse Resp BP Pulse Ox 98.2 F 62 18 132/61 96 03/08/19 06:57 03/08/19 06:57 03/08/19 01:12 03/08/19 06:57 03/08/19 06:57 General NAD CV S1 S2 RRR no murmur/rub/gallop Lungs CTA b/l No wheezing/rales/rhonchi Abdomen +RUQ/LUQ/epigastric tenderness worse in RUQ. +pelayo sign Extremiteis no pedal edema ASSESSMENT AND PLAN: 79yo F wtih PMH provoked DVT and completed anticoagualtion, HTN, dyslipidemia, CAD and hypothyroid presenting to the ER with abdominal pain and found to have acute pancreatitis from suspected gallstones 1. ACute pancreatitis- suspects gallstones from initial imaging. will obtain MRCP. NPO, LR, pain and antiemetics. if from gallbladder will need it out on this admission. Surgery and Gi consulted. received Flagyl/levaquin in the ER. pt is afebrile and no leukocytosis. will hold abx at this time as not indicated as no signs of acute cholecystitis on ultrasound 2. GB wall polyp- 6mm. will need evaluation of this from when cholecystectomy is performed 3. Acute transaminitis- possible from medications although not severe enough to warrnat stopping medication. no repeats were done. nothing visualized in the liver on CT scan. check hepatitis panel. trend 4. HTN- currently normotensive. will hold diuretics 5. Hypothyroid- cont LT4 6. dyslipidemia- hold statin at htis time to trend LFT but should resume on discharge as they are not severe enough where risk outweight benefits of statin therapy 7. DVT ppx- lovenox
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
[2019-03-08 14:08] LABS: CHOLESTEROL 152 mg/dL (50-200); HDL CHOLESTEROL 60 mg/dL (40-60); TRIGLYCERIDES 120 mg/dL (0-150)
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
[2019-03-08] MEDS ORDERED: PIPERACILLIN/TAZOB 3.375 GM 3.375 GM/50 ML BAG IVPB ONE (15:02)
[2019-03-08] MEDS: PIPERACILLIN/TAZOB 3.375 GM 3.375 GM in DEXTROSE 5%-WATER - 50 ML IVPB SCH ×2 (15:06→18:06)
[2019-03-08 19:32] LABS: ALBUMIN 3.1 g/dl (3.4-5.0); ALK PHOS 80 U/L (45-117); ANION GAP 6 MMOL/L (8-16); BILIRUBIN,TOTAL 0.8 mg/dL (0.2-1); BLOOD UREA NITROGEN 7 mg/dL (7-18); CALCIUM 8.8 mg/dL (8.5-10.1); CHLORIDE 107 mmol/L (98-107); CO2 30 mmol/L (21-32); CREATININE 0.7 mg/dL (0.55-1.3); GLUCOSE,RANDOM 92 mg/dL (74-106); LIPASE 1925 U/L (73-393); POTASSIUM 3.9 mmol/L (3.5-5.1); SGOT/AST 65 U/L (15-37); SGPT/ALT 105 U/L (13-61); SODIUM 143 mmol/L (136-145); TOT PROT 5.7 g/dl (6.4-8.2)
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
[2019-03-08] MEDS ORDERED: ATORVASTATIN CA 20 MG TABLET (FP) PO SCH (22:00)
[2019-03-08 22:09] VITALS: BMI 28.5
[2019-03-09] MEDS ORDERED: DEXTROSE 5%-WATER - 50 ML IVPB ONE ×2 (01:30→08:46)
[2019-03-09] MEDS ORDERED: PIPERACILLIN/TAZOBACTAM 3.375 GM VIAL IVPB ONE ×2 (01:30→08:46)
[2019-03-09] MEDS: PIPERACILLIN/TAZOB 3.375 GM 3.375 GM in DEXTROSE 5%-WATER - 50 ML IVPB SCH ×2 (03:15→09:18)
[2019-03-09] MEDS ORDERED: PT OWN MED DRAWER 7, Y5N ONE (05:51)
[2019-03-09] MEDS: LACTATED RINGERS SOLUTION 1,000 ML IV SCH ×3 (06:25→18:43)
[2019-03-09] MEDS: LEVOTHYROXINE NA 50 MCG TABLET (FP) PO SCH (06:26)
[2019-03-09 07:58] LABS: HEMATOCRIT 43.3 % (32.4-45.2); HEMOGLOBIN 14.8 GM/dL (10.7-15.3); MCH 31.9 pg (25.7-33.7); MCHC 34.2 g/dl (32.0-36.0); MEAN CELL VOLUME 93.1 fl (80-96); MEAN PLT VOLUME 8.1 fl (7.5-11.1); PLATELET COUNT 229 K/MM3 (134-434); RBC 4.65 M/mm3 (3.60-5.2); RDW 14.2 % (11.6-15.6); WHITE BLOOD COUNT 5.6 K/mm3 (4.0-10.0)
[2019-03-09 08:15] LABS: ALBUMIN 3.4 g/dl (3.4-5.0); ALK PHOS 84 U/L (45-117); ANION GAP 6 MMOL/L (8-16); BLOOD UREA NITROGEN 7 mg/dL (7-18); CALCIUM 9.3 mg/dL (8.5-10.1); CHLORIDE 105 mmol/L (98-107); CO2 29 mmol/L (21-32); CREATININE 0.9 mg/dL (0.55-1.3); GLUCOSE,RANDOM 87 mg/dL (74-106); POTASSIUM 4.2 mmol/L (3.5-5.1); SGOT/AST 52 U/L (15-37); SGPT/ALT 95 U/L (13-61); SODIUM 141 mmol/L (136-145); TOT PROT 6.5 g/dl (6.4-8.2)
[2019-03-09] MEDS: ATENOLOL 50 MG TABLET (FP) PO SCH (09:18)
[2019-03-09] MEDS: ENOXAPARIN NA (PORCINE) 40 MG/0.4 ML DISP.SYRIN SQ SCH (09:18)
[2019-03-09] MEDS: SOLIFENACIN SUCCINATE 5 MG TAB (FP) PO SCH (09:18)
--- NOTE | 2019-03-09 12:41 | PN ---
Progress Note, Physician History of Present Illness: patient doing well minimal abd pain no complaints surgery on board - Current Medication List Current Medications: Active Medications Acetaminophen (Tylenol -) 650 mg PO Q4H PRN PRN Reason: PAIN LEVEL 1-5 Atenolol (Tenormin -) 50 mg PO DAILY [facility] Last Admin: 03/09/19 09:18 Dose: 50 mg Enoxaparin Sodium (Lovenox -) 40 mg SQ DAILY [facility] Last Admin: 03/09/19 09:18 Dose: 40 mg Lactated Ringer's (Lactated Ringers Solution) 1,000 mls @ 150 mls/hr IV ASDIR [facility] Last Admin: 03/09/19 11:58 Dose: 150 mls/hr Piperacillin Sod/Tazobactam (Sod 3.375 gm/ Dextrose) 50 mls @ 100 mls/hr IVPB Q8H-IV [facility]; Protocol Last Admin: 03/09/19 09:18 Dose: 100 mls/hr Levothyroxine Sodium (Synthroid -) 50 mcg PO DAILY@0700 [facility] Last Admin: 03/09/19 06:26 Dose: 50 mcg Morphine Sulfate (Morphine Sulfate) 2 mg IVPUSH Q4H PRN PRN Reason: PAIN LEVEL 6-10 Last Admin: 03/08/19 11:07 Dose: 2 mg Solifenacin (Vesicare -) 5 mg PO DAILY [facility] Last Admin: 03/09/19 09:18 Dose: 5 mg - Objective Vital Signs: Vital Signs Temperature 98.1 F 03/09/19 09:00 Pulse Rate 62 03/09/19 09:00 Respiratory Rate 20 03/09/19 09:00 Blood Pressure 140/77 03/09/19 09:00 O2 Sat by Pulse Oximetry (%) 95 03/09/19 09:00 Constitutional: Yes: No Distress, Calm Cardiovascular: Yes: Regular Rate and Rhythm Respiratory: Yes: Regular, CTA Bilaterally Gastrointestinal: Yes: Hypoactive Bowel Sounds, Other (minimal tenderness) Musculoskeletal: Yes: WNL Extremities: Yes: WNL Neurological: Yes: Alert, Oriented Psychiatric: Yes: Alert, Oriented Labs: CBC, BMP 03/09/19 06:30 03/09/19 06:30 INR, PTT INR 0.96 (0.83-1.09) 03/08/19 07:25 Assessment/Plan Problem List - Problems (1) Pancreatitis Code(s): K85.90 - ACUTE PANCREATITIS WITHOUT NECROSIS OR INFECTION, UNSP Qualifiers: Chronicity: acute Pancreatitis type: unspecified pancreatitis type Acute pancreatitis complication: no infection or necrosis Qualified Code(s): K85.90 - Acute pancreatitis without necrosis or infection, unspecified (2) Upper abdominal pain Code(s): R10.10 - UPPER ABDOMINAL PAIN, UNSPECIFIED (3) Right upper quadrant abdominal tenderness without rebound tenderness Code(s): R10.811 - RIGHT UPPER QUADRANT ABDOMINAL TENDERNESS (4) HTN (hypertension) Code(s): I10 - ESSENTIAL (PRIMARY) HYPERTENSION Qualifiers: Hypertension type: essential hypertension Qualified Code(s): I10 - Essential (primary) hypertension (5) Hypothyroidism Code(s): E03.9 - HYPOTHYROIDISM, UNSPECIFIED Qualifiers: Hypothyroidism type: unspecified Qualified Code(s): E03.9 - Hypothyroidism , unspecified plan will stop abx and monitor await for all reports hydration final plan
--- NOTE | 2019-03-09 13:57 | PN ---
Teaching Attending Note Name of Resident: Jus Nguyen ATTENDING PHYSICIAN STATEMENT I saw and evaluated the patient. I reviewed the resident's note and discussed the case with the resident. I agree with the resident's findings and plan as documented. SUBJECTIVE:pain has resolved. requesting to eat. denies Cp, SOB, fever, chills, N/V/C/D OBJECTIVE: Last Vital Signs Temp Pulse Resp BP Pulse Ox 98.1 F 62 20 140/77 95 03/09/19 09:00 03/09/19 09:00 03/09/19 09:00 03/09/19 09:00 03/09/19 09:00 General NAD CV S1 S2 RRR no murmur/rub/gallop Lungs CTA b/l No wheezing/rales/rhonchi Abdomen soft NT/ND no rebound or guarding Extremiteis no pedal edema ASSESSMENT AND PLAN: 79yo F wtih PMH provoked DVT and completed anticoagualtion, HTN, dyslipidemia, CAD and hypothyroid presenting to the ER with abdominal pain and found to have acute pancreatitis from suspected gallstones 1. ACute pancreatitis- suspects gallstones from initial imaging. clinically improved. will advance to clears and monitro for improvement. on zosyn day 2. f/ u MRCP. Surgery and Gi consulted. received 2. GB wall polyp- 6mm. will need evaluation of this from when cholecystectomy is performed 3. Acute transaminitis- possible from medications although not severe enough to warrant stopping medication. no repeats were done. nothing visualized in the liver on CT scan. check hepatitis panel. trend 4. HTN- currently normotensive. will hold diuretics 5. Hypothyroid- cont LT4 6. dyslipidemia- hold statin at htis time to trend LFT but should resume on discharge as they are not severe enough where risk outweight benefits of statin therapy 7. DVT ppx- lovenox
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
--- NOTE | 2019-03-09 17:25 | PN.GI ---
GI Progress Note Subjective: Pt seen/examined at bedside, feeling well, abdominal pain resolved, denies n/v, passing flatus, no bms yet. Denies fever/chills. - Objective Vital Signs: Vital Signs Temperature 98 F 03/09/19 16:20 Pulse Rate 63 03/09/19 16:20 Respiratory Rate 18 03/09/19 16:20 Blood Pressure 164/81 03/09/19 16:20 O2 Sat by Pulse Oximetry (%) 95 03/09/19 09:00 Constitutional: Well Nourished, No Distress, Calm Cardiovascular: Yes: WNL, Regular Rate and Rhythm Respiratory: Yes: WNL, Regular, CTA Bilaterally Gastrointestinal Inspection: Yes: WNL ...Palpate: Yes: Other (Abd soft, nt, nd) Labs: CBC, BMP 03/09/19 06:30 03/09/19 06:30 INR, PTT INR 0.96 (0.83-1.09) 03/08/19 07:25 Problem List - Problems (1) Pancreatitis Assessment/Plan: 79yo female with acute pancreatitis suspected secondary to gallstones/ microlithiasis, no etoh use or elevated TGs. IGG4 pending for completion. MRCP revealing thickened/edematous GB, no obvious stones, and no CBD dilation. 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 Abdominal pain now resolved. LFTs downtrending which may suggest passed stones/ microlithiasis. -Continue supportive measures, IVF -Clear liquid diet as tolerated -Monitor LFT trend -Follow up IGG4 for completion -Surgery consult/follow up for further management and to discuss possible cholecystectomy -Pt will require follow up MRI to assess pancreatic cystic lesions, likely side branch IPMNs, considering size/description (attempted to contact Dr. Carballo to discuss results, left message). Code(s): K85.90 - ACUTE PANCREATITIS WITHOUT NECROSIS OR INFECTION, UNSP Qualifiers: Chronicity: acute Pancreatitis type: unspecified pancreatitis type Acute pancreatitis complication: no infection or necrosis Qualified Code(s): K85.90 - Acute pancreatitis without necrosis or infection, unspecified
[2019-03-09 19:09] LABS: ALBUMIN 3.4 g/dl (3.4-5.0); ALK PHOS 77 U/L (45-117); ANION GAP 5 MMOL/L (8-16); BILIRUBIN,TOTAL 0.8 mg/dL (0.2-1); BLOOD UREA NITROGEN 8 mg/dL (7-18); CALCIUM 9.5 mg/dL (8.5-10.1); CHLORIDE 105 mmol/L (98-107); CO2 30 mmol/L (21-32); CREATININE 0.7 mg/dL (0.55-1.3); GLUCOSE,RANDOM 76 mg/dL (74-106); POTASSIUM 4.2 mmol/L (3.5-5.1); SGOT/AST 47 U/L (15-37); SGPT/ALT 87 U/L (13-61); SODIUM 140 mmol/L (136-145); TOT PROT 6.6 g/dl (6.4-8.2)
[2019-03-09] MEDS ORDERED: LACTATED RINGERS SOLUTION 1,000 ML IV SCH (21:02)
--- NOTE | 2019-03-09 21:03 | PN ---
Progress Note, Physician History of Present Illness: Pt with pancreatitis but no pancreatic inflammation on imaging and ? of cholecystitis but no stones on imaging. On abx, IVF, was NPO but started clears at lunch today and is tolerating well. Voiding well, passing gas, no BM yet. No pain anymore. Ambulating in halls. Seen and examined in chair in room. LFTs normalizing, lipase was down markedly from 1st day to yesterday. MRCP read today as thickened, inflamed gb wall but no stones, no ductal stones or dilation , no pancreatic inflammation, few small pancreatic cystic structures associated with nondilated duct, no masses, massive hiatal hernia with stomach in chest with organoaxial rotation. Pt reports last EGD and colonoscopy about [address] Weems ([facility]), at which time she does not remember being told about any hernia, or her stomach in her chest. - Current Medication List Current Medications: Active Medications Acetaminophen (Tylenol -) 650 mg PO Q4H PRN PRN Reason: PAIN LEVEL 1-5 Atenolol (Tenormin -) 50 mg PO DAILY [facility] Last Admin: 03/09/19 09:18 Dose: 50 mg Enoxaparin Sodium (Lovenox -) 40 mg SQ DAILY [facility] Last Admin: 03/09/19 09:18 Dose: 40 mg Lactated Ringer's (Lactated Ringers Solution) 1,000 mls @ 75 mls/hr IV ASDIR [facility] Levothyroxine Sodium (Synthroid -) 50 mcg PO DAILY@0700 [facility] Last Admin: 03/09/19 06:26 Dose: 50 mcg Solifenacin (Vesicare -) 5 mg PO DAILY [facility] Last Admin: 03/09/19 09:18 Dose: 5 mg - Objective Vital Signs: Vital Signs Temperature 98 F 03/09/19 16:20 Pulse Rate 79 03/09/19 18:18 Respiratory Rate 18 03/09/19 16:20 Blood Pressure 128/79 03/09/19 18:18 O2 Sat by Pulse Oximetry (%) 95 03/09/19 09:00 Constitutional: Yes: Well Nourished, No Distress, Calm Eyes: Yes: Conjunctiva Clear, EOM Intact. No: Sclera Icterus HENT: Yes: Atraumatic, Normocephalic Gastrointestinal: Yes: Normal Bowel Sounds, Soft. No: Distention, Tenderness, Tenderness, Epigastrium Extremities: No: Cool, Cyanosis Integumentary: No: Jaundice, Rash Neurological: Yes: Alert, Oriented. No: Unsteady Gait Labs: CBC, BMP 03/09/19 06:30 03/09/19 17:45 CMP Sodium 140 mmol/L (136-145) 03/09/19 17:45 Potassium 4.2 mmol/L (3.5-5.1) 03/09/19 17:45 Chloride 105 mmol/L (98-107) 03/09/19 17:45 Carbon Dioxide 30 mmol/L (21-32) 03/09/19 17:45 Anion Gap 5 MMOL/L (8-16) L 03/09/19 17:45 BUN 8 mg/dL (7-18) 03/09/19 17:45 Creatinine 0.7 mg/dL (0.55-1.3) 03/09/19 17:45 Creat Clearance w eGFR 80.93 (>60) 03/09/19 17:45 Random Glucose 76 mg/dL (74-106) 03/09/19 17:45 Lactic Acid 1.6 mmol/L (0.4-2.0) 03/08/19 07:25 Calcium 9.5 mg/dL (8.5-10.1) 03/09/19 17:45 Phosphorus 4.0 mg/dL (2.5-4.9) 03/09/19 06:30 Magnesium 2.0 mg/dL (1.8-2.4) 03/09/19 06:30 Total Bilirubin 0.8 mg/dL (0.2-1) 03/09/19 17:45 AST 47 U/L (15-37) H 03/09/19 17:45 ALT 87 U/L (13-61) H 03/09/19 17:45 Alkaline Phosphatase 77 U/L (45-117) 03/09/19 17:45 Creatine Kinase 183 U/L (26-192) 03/08/19 02:53 Creatine Kinase Index 1.0 % (0.0-5.0) 03/08/19 02:53 CK-MB (CK-2) 2.0 ng/mL (0.5-3.6) 03/08/19 02:53 Troponin I < 0.02 ng/ml (0.00-0.05) 03/08/19 02:53 Total Protein 6.6 g/dl (6.4-8.2) 03/09/19 17:45 Albumin 3.4 g/dl (3.4-5.0) 03/09/19 17:45 Triglycerides 120 mg/dL (0-150) 03/08/19 13:12 Cholesterol 152 mg/dL (50-200) 03/08/19 13:12 Total LDL Cholesterol 77 mg/dL (5-100) 03/08/19 13:12 HDL Cholesterol 60 mg/dL (40-60) 03/08/19 13:12 Lipase 1925 U/L (73-393) H 03/08/19 18:00 wbc has remained normal - ....Imaging MRI: Report Reviewed (see hpi) Problem List - Problems (1) Pancreatitis Assessment/Plan: pancreatitis by elevated lipase but without imaging evidence of pancreatic inflammation seems to be resolving/resolved recheck lipase in am tolerating clears with no pain/tenderness decrease IVF advance diet in am monitor for recurrence of symptoms MRI findings in pancreas should be followed up by PMD and/or GI - discussed with pt suggestion of gallbladder inflammation by wall thickening, pericholecystic fluid on imaging but no stones ?acalculous cholecystitis unsure if anatomy of hiatal hernia could influence/impact biliary system to give this picture? with complete resolution of symptoms, no clear indication for cholecystectomy at this time will monitor response to diet advancement trend labs in am discuss with primary team/ID/GI in am Code(s): K85.90 - ACUTE PANCREATITIS WITHOUT NECROSIS OR INFECTION, UNSP Qualifiers: Chronicity: acute Pancreatitis type: unspecified pancreatitis type Acute pancreatitis complication: no infection or necrosis Qualified Code(s): K85.90 - Acute pancreatitis without necrosis or infection, unspecified (2) Upper abdominal pain Assessment/Plan: resolved Code(s): R10.10 - UPPER ABDOMINAL PAIN, UNSPECIFIED (3) Right upper quadrant abdominal tenderness without rebound tenderness Assessment/Plan: resolved Code(s): R10.811 - RIGHT UPPER QUADRANT ABDOMINAL TENDERNESS (4) HTN (hypertension) Code(s): I10 - ESSENTIAL (PRIMARY) HYPERTENSION Qualifiers: Hypertension type: essential hypertension Qualified Code(s): I10 - Essential (primary) hypertension (5) Hypothyroidism Code(s): E03.9 - HYPOTHYROIDISM, UNSPECIFIED Qualifiers: Hypothyroidism type: unspecified Qualified Code(s): E03.9 - Hypothyroidism , unspecified
[2019-03-10] MEDS: LEVOTHYROXINE NA 50 MCG TABLET (FP) PO SCH (06:15)
[2019-03-10 06:38] LABS: MCH 31.5 pg (25.7-33.7); MCHC 34.2 g/dl (32.0-36.0); MEAN CELL VOLUME 92.1 fl (80-96); MEAN PLT VOLUME 7.7 fl (7.5-11.1); PLATELET COUNT 199 K/MM3 (134-434); RBC 4.45 M/mm3 (3.60-5.2); RDW 13.8 % (11.6-15.6); WHITE BLOOD COUNT 4.6 K/mm3 (4.0-10.0)
[2019-03-10 07:08] LABS: ALBUMIN 3.1 g/dl (3.4-5.0); ALK PHOS 66 U/L (45-117); ANION GAP 6 MMOL/L (8-16); BILIRUBIN,TOTAL 0.8 mg/dL (0.2-1); BLOOD UREA NITROGEN 8 mg/dL (7-18); CALCIUM 8.9 mg/dL (8.5-10.1); CHLORIDE 108 mmol/L (98-107); CO2 29 mmol/L (21-32); CREATININE 0.7 mg/dL (0.55-1.3); GLUCOSE,RANDOM 91 mg/dL (74-106); MAGNESIUM 1.9 mg/dL (1.8-2.4); PHOSPHOROUS 3.9 mg/dL (2.5-4.9); POTASSIUM 3.8 mmol/L (3.5-5.1); SGOT/AST 38 U/L (15-37); SGPT/ALT 70 U/L (13-61); SODIUM 143 mmol/L (136-145); TOT PROT 5.8 g/dl (6.4-8.2)
[2019-03-10 07:11] LABS: ALBUMIN 3.1 g/dl (3.4-5.0); AMYLASE 49 U/L (25-115); BILIRUBIN,DIRECT 0.2 mg/dL (0.0-0.2); BILIRUBIN,TOTAL 0.8 mg/dL (0.2-1); LIPASE 119 U/L (73-393); TOT PROT 5.8 g/dl (6.4-8.2)
[2019-03-10] MEDS: ATENOLOL 50 MG TABLET (FP) PO SCH (09:43)
[2019-03-10] MEDS: SOLIFENACIN SUCCINATE 5 MG TAB (FP) PO SCH (09:43)
[2019-03-10] MEDS: ENOXAPARIN NA (PORCINE) 40 MG/0.4 ML DISP.SYRIN SQ SCH (09:43)
--- NOTE | 2019-03-10 11:58 | PN ---
Progress Note, Physician History of Present Illness: patient stable doing well no new issues - Current Medication List Current Medications: Active Medications Acetaminophen (Tylenol -) 650 mg PO Q4H PRN PRN Reason: PAIN LEVEL 1-5 Atenolol (Tenormin -) 50 mg PO DAILY [facility] Last Admin: 03/10/19 09:43 Dose: 50 mg Enoxaparin Sodium (Lovenox -) 40 mg SQ DAILY [facility] Last Admin: 03/10/19 09:43 Dose: 40 mg Lactated Ringer's (Lactated Ringers Solution) 1,000 mls @ 75 mls/hr IV ASDIR [facility] Levothyroxine Sodium (Synthroid -) 50 mcg PO DAILY@0700 [facility] Last Admin: 03/10/19 06:15 Dose: 50 mcg Solifenacin (Vesicare -) 5 mg PO DAILY [facility] Last Admin: 03/10/19 09:43 Dose: 5 mg - Objective Vital Signs: Vital Signs Temperature 98.0 F 03/10/19 06:00 Pulse Rate 54 L 03/10/19 06:00 Respiratory Rate 18 03/10/19 06:00 Blood Pressure 133/74 03/10/19 06:00 O2 Sat by Pulse Oximetry (%) 95 03/09/19 09:00 Constitutional: Yes: No Distress, Calm Cardiovascular: Yes: Regular Rate and Rhythm Respiratory: Yes: Regular, CTA Bilaterally Gastrointestinal: Yes: Normal Bowel Sounds, Soft Musculoskeletal: Yes: WNL Extremities: Yes: WNL Neurological: Yes: Alert, Oriented Psychiatric: Yes: Alert, Oriented Labs: CBC, BMP 03/10/19 06:00 03/10/19 06:00 INR, PTT INR 0.96 (0.83-1.09) 03/08/19 07:25 Assessment/Plan Problem List - Problems (1) Pancreatitis Code(s): K85.90 - ACUTE PANCREATITIS WITHOUT NECROSIS OR INFECTION, UNSP Qualifiers: Chronicity: acute Pancreatitis type: unspecified pancreatitis type Acute pancreatitis complication: no infection or necrosis Qualified Code(s): K85.90 - Acute pancreatitis without necrosis or infection, unspecified (2) Upper abdominal pain Code(s): R10.10 - UPPER ABDOMINAL PAIN, UNSPECIFIED (3) Right upper quadrant abdominal tenderness without rebound tenderness Code(s): R10.811 - RIGHT UPPER QUADRANT ABDOMINAL TENDERNESS (4) HTN (hypertension) Code(s): I10 - ESSENTIAL (PRIMARY) HYPERTENSION Qualifiers: Hypertension type: essential hypertension Qualified Code(s): I10 - Essential (primary) hypertension (5) Hypothyroidism Code(s): E03.9 - HYPOTHYROIDISM, UNSPECIFIED Qualifiers: Hypothyroidism type: unspecified Qualified Code(s): E03.9 - Hypothyroidism , unspecified plan continue current mgmt await for all reports hydration final plan
[2019-03-10 14:49] VITALS: TEMP 98.2
--- NOTE | 2019-03-10 15:50 | DS ---
Physical Exam: SUBJECTIVE: Patient seen and examined OBJECTIVE: Vital Signs Period Temp Pulse Resp BP Sys/Monreal Pulse Ox Last 24 Hr 98 F-98.2 F 54-79 18-18 128-164/70-81 94 PHYSICAL EXAM GENERAL: The patient is awake, alert, and fully oriented, in no acute distress. HEAD: Normal with no signs of trauma. EYES: PERRL, extraocular movements intact, sclera anicteric, conjunctiva clear. ENT: Ears normal, nares patent, oropharynx clear without exudates, moist mucous membranes. NECK: Trachea midline, full range of motion, supple. LUNGS: Breath sounds equal, clear to auscultation bilaterally, no wheezes, no crackles, no accessory muscle use. HEART: Regular rate and rhythm, S1, S2 without murmur, rub or gallop. ABDOMEN: Soft, nontender, nondistended, normoactive bowel sounds, no guarding, no rebound, no hepatosplenomegaly, no masses. EXTREMITIES: 2+ pulses, warm, well-perfused, no edema. NEUROLOGICAL: Cranial nerves II through XII grossly intact. Normal speech, gait not observed. PSYCH: Normal mood, normal affect. SKIN: Warm, dry, normal turgor, no rashes or lesions noted. LABS Laboratory Results - last 24 hr 03/09/19 03/10/19 03/10/19 17:45 06:00 06:00 WBC 4.6 RBC 4.45 Hgb 14.0 Hct 41.0 MCV 92.1 MCH 31.5 MCHC 34.2 RDW 13.8 Plt Count 199 MPV 7.7 Sodium 140 143 Potassium 4.2 3.8 Chloride 105 108 H Carbon Dioxide 30 29 Anion Gap 5 L 6 L BUN 8 8 Creatinine 0.7 0.7 Creat Clearance w eGFR 80.93 80.93 Random Glucose 76 91 Calcium 9.5 8.9 Phosphorus 3.9 Magnesium 1.9 Total Bilirubin 0.8 0.8 Direct Bilirubin AST 47 H 38 H ALT 87 H 70 H Alkaline Phosphatase 77 66 Total Protein 6.6 5.8 L Albumin 3.4 3.1 L Total Amylase Lipase 03/10/19 03/10/19 06:00 06:00 WBC RBC Hgb Hct MCV MCH MCHC RDW Plt Count MPV Sodium Potassium Chloride Carbon Dioxide Anion Gap BUN Creatinine Creat Clearance w eGFR Random Glucose Calcium Phosphorus Magnesium Total Bilirubin 0.8 Direct Bilirubin 0.2 AST 37 ALT 70 H Alkaline Phosphatase 65 Total Protein 5.8 L Albumin 3.1 L Total Amylase 49 Lipase 119 HOSPITAL COURSE: Date of Admission:03/08/19 Date of Discharge: 03/10/19 Discharge Summary Reason For Visit: PANCREATITIS Current Active Problems HTN (hypertension) (Acute) Hypothyroidism (Acute) Right upper quadrant abdominal tenderness without rebound tenderness (Acute) Upper abdominal pain (Acute) Condition: Stable - Instructions Diet, Activity, Other Instructions: You came in for for abdominal pain because of pancreatitis. We treated you with IVF and pain medications. We imaged your abdomen and found that you have a large hiatal hernia with stomach involvement. We also saw that you have multiple cysts in your pancreas with the largest being 3mm. PLEASE FOLLOW-UP in 1 year with a repeat MRCP. Please follow up with you Primary Care Physician within 1 week. Please Abd. US negative for gall stones or CBD dilatation, however small polyps noted-- > f/u US in 3-6 months - Home Medications Comprehensive Discharge Medication List: Ambulatory Orders Aspirin [Ecotrin] 81 mg PO DAILY 04/15/16 Atenolol [Tenormin -] 50 mg PO DAILY 04/15/16 Atorvastatin Ca [Lipitor] 20 mg PO HS 04/15/16 Hydrochlorothiazide 25 mg PO DAILY 04/15/16 Levothyroxine [Synthroid -] 50 mcg PO DAILY 06/07/18 Oxybutynin Chloride [Ditropan Xl] 10 mg PO DAILY 06/07/18 - Discharge Referral Referred to [facility] No
--- NOTE | 2019-03-10 16:26 | PN ---
Teaching Attending Note Name of Resident: Jus Nguyen ATTENDING PHYSICIAN STATEMENT I saw and evaluated the patient. I reviewed the resident's note and discussed the case with the resident. I agree with the resident's findings and plan as documented. SUBJECTIVE:tolerating diet. denies CP, SOB, fever, chills, N/V/C/d, tolerating diet OBJECTIVE: Last Vital Signs Temp Pulse Resp BP Pulse Ox 98.2 F 65 18 137/70 94 L 03/10/19 14:47 03/10/19 14:47 03/10/19 14:47 03/10/19 14:47 03/10/19 09:00 General NAD CV S1 S2 RRR no murmur/rub/gallop Lungs CTA b/l No wheezing/rales/rhonchi Abdomen soft NT/ND no rebound or guarding Extremiteis no pedal edema ASSESSMENT AND PLAN: 79yo F wtih PMH provoked DVT and completed anticoagualtion, HTN, dyslipidemia, CAD and hypothyroid presenting to the ER with abdominal pain and found to have acute pancreatitis from suspected gallstones 1. ACute pancreatitis- clincially resolved. tolerating diet. MRCP showing no gallstones or sludge. CBD Normal. 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 does not require her gallbladder out at this time but will need to be monitored. Surgery and Gi consulted. ID consulted and recommends treatment for acalculus cholecytsitis with augmentin x7 days. 2. GB wall polyp- 6mm. routine surveillance 3. Acute transaminitis- possible from medications although not severe enough to warrant stopping medication. trending down. 4. HTN- currently normotensive. restart meds on discharge 5. Hypothyroid- cont LT4 6. [id number] statin on discharge. 7. DVT ppx- lovenox 8, can d/c home with GI follow up
[2019-03-10 17:21] VITALS: BP 143/77; PULSE 84
[2019-03-10] MEDS ORDERED: AMOX TR/POT CLAV 875MG/125MG TABLETS (FP) PO SCH (17:30)
== END 2019-03-10 18:22 | disposition home or self-care (01) | DRG 439 ==
LOC: JER 01:12 → JERBED 04:00 → J8W 20:30
PROVIDERS: ADMIT Internal Medicine; ATTEND Internal Medicine
DX: K85.90 Acute pancreatitis without necrosis or infection, unspecified (principal); E87.2 Acidosis; K82.4 Cholesterolosis of gallbladder; I10 Essential (primary) hypertension; I25.10 Atherosclerotic heart disease of native coronary artery without angina pectoris; E03.9 Hypothyroidism, unspecified; E78.5 Hyperlipidemia, unspecified; R74.0 Nonspecific elevation of levels of transaminase and lactic acid dehydrogenase [LDH]; K44.9 Diaphragmatic hernia without obstruction or gangrene; Z95.5 Presence of coronary angioplasty implant and graft; Z86.718 Personal history of other venous thrombosis and embolism; Z90.710 Acquired absence of both cervix and uterus; N32.81 Overactive bladder
CPT/HCPCS: 36415; 71045-TC-FY; 74177-TC; 74182-TC; 76705-TC; 80048; 80053; 80061; 80076; 82150; 82550; 82553; 82787; 83605; 83690; 83721; 83735; 84100; 84484; 85025; 85027; 85610; 85730; 86850; 86900; 86901; 93005; 93010; 99283-25; J0131; J7030

== ENCOUNTER 2022-02-12 10:27 | Day surgery (SDC) | payer OTHER ==
[2022-02-10 16:01] VITALS: BMI 29.2
[2022-02-12] MEDS ORDERED: PROPOFOL 20 ML ONE ×2 (11:19)
[2022-02-12 12:19] VITALS: BP 130/78; PULSE 64; TEMP 98
== END 2022-02-12 12:37 | disposition home or self-care (01) ==
LOC: FASU-ENDO 10:27
PROVIDERS: ATTEND Internal Medicine Gastroenterology
PROC: 0DJD8ZZ Inspection of Lower Intestinal Tract, Via Natural or Artificial Opening Endoscopic (ICD-10-PCS; principal; 2022-02-12 11:41)
DX: Z12.11 Encounter for screening for malignant neoplasm of colon (principal); K57.30 Diverticulosis of large intestine without perforation or abscess without bleeding; K64.1 Second degree hemorrhoids

== ENCOUNTER 2023-06-25 20:50 | Observation (INO) | payer OTHER ==
[2023-06-25] MEDS ORDERED: ASPIRIN 81 MG CHEWABLE TABLETS PO ONE (21:17)
[2023-06-25] MEDS ORDERED: ASPIRIN 81 MG CHEWABLE TABLETS ONE (21:24)
[2023-06-25 21:30] LABS: BASO % 0.6 % (0-2.0); EOS % 3.2 % (0-4.5); HEMOGLOBIN 15.1 GM/dL (10.7-15.3); LYMPH % 27.6 % (8-40); MCH 30.5 pg (25.7-33.7); MCHC 33.7 g/dl (32.0-36.0); MEAN CELL VOLUME 90.7 fl (80-96); MEAN PLT VOLUME 7.8 fl (7.5-11.1); MONO % 7.9 % (3.8-10.2); NEUT % 60.7 % (42.8-82.8); PLATELET COUNT 227 10^3/uL (134-434); RBC 4.96 M/mm3 (3.60-5.2); RDW 13.8 % (11.6-15.6); WHITE BLOOD COUNT 6.8 K/mm3 (4.0-10.0)
[2023-06-25 21:43] LABS: INR 0.99 (0.83-1.09); PROTHROMBIN TIME (PATIENT) 11.5 SEC (9.7-13.0)
[2023-06-25 22:01] LABS: POTASSIUM 4.3 mmol/L (3.5-5.1)
[2023-06-25 22:03] LABS: CALCIUM 9.6 mg/dL (8.5-10.1)
[2023-06-25 22:04] LABS: BLOOD UREA NITROGEN 16.1 mg/dL (7-18)
[2023-06-25 22:07] LABS: CREATININE 0.8 mg/dL (0.55-1.3)
[2023-06-25 22:08] LABS: TOT PROT 7.3 g/dl (6.4-8.2)
[2023-06-25 22:09] LABS: BILIRUBIN,TOTAL 0.6 mg/dL (0.2-1)
[2023-06-26] MEDS: ENOXAPARIN NA (PORCINE) 80 MG/0.8 ML DISP.SYRIN SQ SCH ×3 (03:58→21:43)
[2023-06-26] MEDS ORDERED: CLOPIDOGREL BISULFATE 300 MG TABLET PO ONE (05:00)
[2023-06-26] MEDS ORDERED: CLOPIDOGREL BISULFATE 300 MG TABLET ONE (05:33)
[2023-06-26 06:45] LABS: HEMOGLOBIN 14.7 GM/dL (10.7-15.3); MCH 30.3 pg (25.7-33.7); MCHC 32.7 g/dl (32.0-36.0); MEAN CELL VOLUME 92.7 fl (80-96); MEAN PLT VOLUME 8.7 fl (7.5-11.1); PLATELET COUNT 211 10^3/uL (134-434); RBC 4.85 M/mm3 (3.60-5.2); RDW 13.6 % (11.6-15.6); WHITE BLOOD COUNT 6.3 K/mm3 (4.0-10.0)
[2023-06-26 07:03] LABS: POTASSIUM 3.9 mmol/L (3.5-5.1)
[2023-06-26 07:06] LABS: ALBUMIN 3.4 g/dl (3.4-5.0); BLOOD UREA NITROGEN 14.7 mg/dL (7-18); MAGNESIUM 2.4 mg/dL (1.8-2.4)
[2023-06-26 07:09] LABS: CREATININE 0.8 mg/dL (0.55-1.3); PHOSPHOROUS 3.1 mg/dL (2.5-4.9)
[2023-06-26 07:10] LABS: BILIRUBIN,TOTAL 0.6 mg/dL (0.2-1)
[2023-06-26 07:11] LABS: TOT PROT 6.4 g/dl (6.4-8.2)
[2023-06-26] MEDS ORDERED: LEVOTHYROXINE NA 50 MCG TABLET (FP) ONE (07:28)
[2023-06-26] MEDS: LEVOTHYROXINE NA 50 MCG TABLET (FP) PO SCH (07:33)
[2023-06-26] MEDS ORDERED: NITROGLYCERIN SUBLINGUAL 1/150 0.4 MG TAB SL PRN (07:44)
[2023-06-26 08:42] VITALS: BMI 27.1
[2023-06-26] MEDS: MULTIVITAMINS THER W-MINERALS COMBO TABLET (FP) PO SCH ×2 (11:43→13:31)
[2023-06-26] MEDS: ASPIRIN COATED 81 MG TABLET.EC PO SCH ×2 (11:43→13:31)
[2023-06-26] MEDS: CYANOCOBALAMIN 1,000 MCG TABLET (FP) PO SCH ×2 (11:43→13:30)
[2023-06-26] MEDS: ATENOLOL 50 MG TABLET (FP) PO SCH ×2 (11:44→13:30)
[2023-06-26] MEDS: FUROSEMIDE 20 MG TABLET (FP) PO SCH ×2 (11:44→13:31)
[2023-06-26] MEDS: LISINOPRIL 5 MG TABLET PO SCH ×2 (11:44→13:31)
[2023-06-26] MEDS: CHOLECALCIFEROL (VIT D3) 5000 UNITS (125 MCG) CAP PO SCH (13:30)
[2023-06-26] MEDS: OXYBUTYNIN CHLORIDE 5 MG TABLET PO SCH ×2 (13:30→21:43)
[2023-06-26] MEDS: ATORVASTATIN CA 40 MG TABLET (FP) PO SCH (21:43)
[2023-06-27] MEDS: LEVOTHYROXINE NA 50 MCG TABLET (FP) PO SCH (06:39)
[2023-06-27] MEDS: ASPIRIN COATED 81 MG TABLET.EC PO SCH (09:47)
[2023-06-27] MEDS: ATENOLOL 50 MG TABLET (FP) PO SCH (09:47)
[2023-06-27] MEDS: FUROSEMIDE 20 MG TABLET (FP) PO SCH (09:47)
[2023-06-27] MEDS: MULTIVITAMINS THER W-MINERALS COMBO TABLET (FP) PO SCH (09:47)
[2023-06-27] MEDS: CYANOCOBALAMIN 1,000 MCG TABLET (FP) PO SCH (09:47)
[2023-06-27] MEDS: LISINOPRIL 5 MG TABLET PO SCH (09:48)
[2023-06-27] MEDS: CHOLECALCIFEROL (VIT D3) 5000 UNITS (125 MCG) CAP PO SCH (09:48)
[2023-06-27] MEDS: OXYBUTYNIN CHLORIDE 5 MG TABLET PO SCH (09:48)
[2023-06-27] MEDS: ENOXAPARIN NA (PORCINE) 80 MG/0.8 ML DISP.SYRIN SQ SCH ×2 (09:49→21:47)
[2023-06-27] MEDS: ATORVASTATIN CA 40 MG TABLET (FP) PO SCH (21:45)
[2023-06-28] MEDS: OXYBUTYNIN CHLORIDE 5 MG TABLET PO SCH ×3 (06:32→21:33)
[2023-06-28] MEDS: LEVOTHYROXINE NA 50 MCG TABLET (FP) PO SCH (07:53)
[2023-06-28 08:25] LABS: HEMATOCRIT 43.5 % (32.4-45.2); HEMOGLOBIN 14.7 GM/dL (10.7-15.3); MCHC 33.9 g/dl (32.0-36.0); MEAN CELL VOLUME 91.3 fl (80-96); MEAN PLT VOLUME 7.9 fl (7.5-11.1); PLATELET COUNT 208 10^3/uL (134-434); RBC 4.76 M/mm3 (3.60-5.2); WHITE BLOOD COUNT 4.7 K/mm3 (4.0-10.0)
[2023-06-28 08:54] LABS: POTASSIUM 4.2 mmol/L (3.5-5.1)
[2023-06-28 08:57] LABS: ALBUMIN 3.5 g/dl (3.4-5.0); BLOOD UREA NITROGEN 16.1 mg/dL (7-18); MAGNESIUM 2.2 mg/dL (1.8-2.4)
[2023-06-28 09:00] LABS: CREATININE 0.7 mg/dL (0.55-1.3); PHOSPHOROUS 3.6 mg/dL (2.5-4.9)
[2023-06-28 09:02] LABS: TOT PROT 6.5 g/dl (6.4-8.2)
[2023-06-28] MEDS: ENOXAPARIN NA (PORCINE) 80 MG/0.8 ML DISP.SYRIN SQ SCH (09:13)
[2023-06-28] MEDS: FUROSEMIDE 20 MG TABLET (FP) PO SCH (09:14)
[2023-06-28] MEDS: ASPIRIN COATED 81 MG TABLET.EC PO SCH (09:14)
[2023-06-28] MEDS: CYANOCOBALAMIN 1,000 MCG TABLET (FP) PO SCH (09:14)
[2023-06-28] MEDS: ATENOLOL 50 MG TABLET (FP) PO SCH (09:14)
[2023-06-28] MEDS: MULTIVITAMINS THER W-MINERALS COMBO TABLET (FP) PO SCH (09:15)
[2023-06-28] MEDS: LISINOPRIL 5 MG TABLET PO SCH (09:15)
[2023-06-28] MEDS: CHOLECALCIFEROL (VIT D3) 5000 UNITS (125 MCG) CAP PO SCH (09:16)
[2023-06-28] MEDS: CLOPIDOGREL BISULFATE 75 MG TABLET (FP) PO SCH (12:25)
[2023-06-28 14:51] VITALS: RESP 18
[2023-06-28] MEDS: ATORVASTATIN CA 40 MG TABLET (FP) PO SCH (21:33)
[2023-06-29] MEDS: LEVOTHYROXINE NA 50 MCG TABLET (FP) PO SCH (06:12)
[2023-06-29 09:13] VITALS: BP 132/72; PULSE 64; TEMP 98.1
[2023-06-29] MEDS: ASPIRIN COATED 81 MG TABLET.EC PO SCH (09:13)
[2023-06-29] MEDS: CLOPIDOGREL BISULFATE 75 MG TABLET (FP) PO SCH (09:14)
[2023-06-29] MEDS: CYANOCOBALAMIN 1,000 MCG TABLET (FP) PO SCH (09:17)
[2023-06-29] MEDS: LISINOPRIL 5 MG TABLET PO SCH (09:17)
[2023-06-29] MEDS: FUROSEMIDE 20 MG TABLET (FP) PO SCH (09:17)
[2023-06-29] MEDS: ATENOLOL 50 MG TABLET (FP) PO SCH (09:17)
[2023-06-29] MEDS: CHOLECALCIFEROL (VIT D3) 5000 UNITS (125 MCG) CAP PO SCH (09:17)
[2023-06-29] MEDS: MULTIVITAMINS THER W-MINERALS COMBO TABLET (FP) PO SCH (09:17)
[2023-06-29] MEDS: OXYBUTYNIN CHLORIDE 5 MG TABLET PO SCH (09:17)
[2023-07-03 15:07] LABS: DRVVT - 38.1 sec (0.0-47.0); HEXAGONAL PHASE PHOSPHOLIPID 3 sec (0-11)
== END 2023-06-29 10:49 | disposition short-term general hospital (02) ==
LOC: JER 20:50 → JERBED 23:53 → J4W 06-26 08:05
PROVIDERS: ADMIT Internal Medicine; ATTEND Internal Medicine
PROC: 3E023GC Introduction of Other Therapeutic Substance into Muscle, Percutaneous Approach (ICD-10-PCS; principal; 2023-06-25)
DX: I21.4 Non-ST elevation (NSTEMI) myocardial infarction (principal); I11.9 Hypertensive heart disease without heart failure; I25.10 Atherosclerotic heart disease of native coronary artery without angina pectoris; R07.9 Chest pain, unspecified; I65.29 Occlusion and stenosis of unspecified carotid artery; R77.8 Other specified abnormalities of plasma proteins; Z95.5 Presence of coronary angioplasty implant and graft; E03.9 Hypothyroidism, unspecified; E78.5 Hyperlipidemia, unspecified; I16.0 Hypertensive urgency; R32 Unspecified urinary incontinence; Z86.718 Personal history of other venous thrombosis and embolism; M71.22 Synovial cyst of popliteal space [Baker], left knee; M71.21 Synovial cyst of popliteal space [Baker], right knee
CPT/HCPCS: 36415; 71045-TC-FY; 71275-TC; 74174-TC; 80053; 80061; 81240; 81241; 82550; 83036; 83735; 84100; 84443; 84484; 85025; 85027; 85300; 85610; 85613; 85730; 85732; 86850; 86900; 86901; 93005; 93010; 93306-TC; 93970-TC; 96372; 97116-GP; 97161-GP; 99285-25; G0378; Q9967